=== PATIENT | female | born 1960 | race Caucasian/White ===

== ENCOUNTER → 2017-03-31 | Outpatient (CLI) | payer OTHER ==
[~2017-03-31] MED LIST: LISI20TA3 PO; LZL/125 PO
--- NOTE | 2017-04-01 08:26 | MAMMOGRAPHY REPORT ---
BILATERAL DIGITAL SCREENING MAMMOGRAM TOMOSYNTHESIS WITH CAD: 03/31/2017 CLINICAL HISTORY: Routine screening examination. TECHNIQUE: Breast tomosynthesis in addition to standard 2D mammography was performed. Current study was also evaluated with a Computer Aided Detection (CAD) system. COMPARISON: Comparison is made to exams dated: 03/26/2016 mammogram, 02/16/2015 mammogram, 08/21/2014 ultrasound, 08/21/2014 mammogram, 02/17/2014 ultrasound, and 02/17/2014 mammogram - [facility]. BREAST COMPOSITION: The tissue of both breasts is extremely dense, which lowers the sensitivity of mammography. FINDINGS: There are possible clustered microcalcifications in the upper outer posterior left breast , for which additional spot magnification views are recommended. Other benign-appearing round and punctate microcalcifications are diffusely scattered bilaterally. No other suspicious mass, architectural distortion or developing asymmetry is seen. IMPRESSION: ACR BI-RADS CATEGORY 0: INCOMPLETE EVALUATION: NEED ADDITIONAL IMAGING EVALUATION The possible clustered microcalcifications in the left upper outer breast needs additional evaluatio n. The patient will be called to schedule an appointment. Approximately 10% of breast cancers are not detected with mammography. A negative mammographic repor t should not delay biopsy if a clinically suggestive mass is present. Kary Valencia M.D. ay/:03/31/2017 17:16:32 Acoustical Engineer: Jhoana DELVALLE(Finesse)(M), [facility] letter sent: Addl Imaging 0 BI-RADS Code: ACR BI-RADS Category 0: Incomplete Evaluation: Need Additional Imaging Evaluation
== END | disposition home or self-care (01) ==
LOC: C.MAMM 08:23
PROVIDERS: ATTEND Obstetrics & Gynecology
DX: Z12.31 Encounter for screening mammogram for malignant neoplasm of breast (principal); R92.2 Inconclusive mammogram

== ENCOUNTER → 2017-04-08 | Outpatient (CLI) | payer OTHER ==
--- NOTE | 2017-04-08 13:17 | MAMMOGRAPHY REPORT ---
UNILATERAL LEFT DIGITAL DIAGNOSTIC MAMMOGRAM: 04/08/2017 CLINICAL HISTORY: Call back from screening mammography for possible clustered microcalcifications in the superior left breast. No strong family history of breast cancer. TECHNIQUE: Spot magnification left CC and ML views were obtained. COMPARISON: Comparison is made to exams dated: 03/31/2017 mammogram, 03/26/2016 mammogram, 02/16/2015 m ammogram, 02/14/2014 mammogram, 02/07/2013 mammogram, and 12/11/2011 mammogram - [facility]. BREAST COMPOSITION: The tissue of the left breast is heterogeneously dense, which may obscure small masses. FINDINGS: Spot magnification views of the left breast demonstrate numerous scattered rounded and rim calcifications, and numerous groupings and clusters of punctate microcalcifications throughout the superior left breast. None demonstrate definite layering on the spot magnification ML view to confi rm benign milk of calcium. When comparing back to prior available mammograms, microcalcifications w ere present throughout the superior left breast dating back to at least 2008, although some of the f aint punctate clusters are better visualized on the current spot magnification views, which could be secondary to technique and different equipment. No obvious mass or focal area of architectural dis tortion is identified in the superior left breast. There are also punctate and round microcalcifica tions throughout the right breast. Overall, these findings most likely represent benign fibrocystic changes. Given the increased conspicuity of small faint groupings and clusters of microcalcificati ons in the superior left breast, a short interval follow-up diagnostic mammogram including spot magn ification views is recommended to ensure stability in 6 months. IMPRESSION: ACR-BI-RADS CATEGORY 3: PROBABLY BENIGN A six-month follow-up left diagnostic mammogram including spot magnification views is recommended to ensure stability of grouped, clustered and scattered round and punctate microcalcifications in the superior breast, some of which are increasingly conspicuous compared to prior exams. These results and recommendations were discussed with the patient at the time of the exam. She tent atively scheduled a follow-up appointment prior to leaving our department. Approximately 10% of breast cancers are not detected with mammography. A negative mammographic repor t should not delay biopsy if a clinically suggestive mass is present. Kary Valencia M.D. ay/:04/08/2017 09:11:17 Certified Optician: Jordan DELVALLE(R)(M), [facility] letter sent: Follow Up Recommended 3 BI-RADS Code: ACR-BI-RADS Category 3: Probably Benign
== END | disposition home or self-care (01) ==
LOC: C.MAMM 08:19
PROVIDERS: ATTEND Obstetrics & Gynecology
DX: R92.0 Mammographic microcalcification found on diagnostic imaging of breast (principal)

== ENCOUNTER → 2017-09-04 | Outpatient (CLI) | payer OTHER ==
[2017-09-04 09:47] LABS: BASO % 1.9 %; BASO ABS # 0.11 K/uL (0-0.2); COMPLETE YES; EOS % 1.9 %; HEMATOCRIT 40.6 % (37-47); IG% 0.2 %; LYMPH % 43.4 %; LYMPH ABS # 2.52 K/uL (1.2-3.4); MEAN CELL VOLUME 86.9 fL (80-100); MEAN CORPUSCULAR HEMOGLOBIN 29.8 pg (25-34); MEAN CORPUSCULAR HGB CONC 34.2 g/dl (32-36); MONO % 7.9 %; NEUT % 44.7 %; PLATELET COUNT 301 K/uL (130-400); RED BLOOD COUNT 4.67 M/uL (4.2-5.4)
[2017-09-04 09:57] LABS: ALT/SGPT 25 U/L (12-78); AST/SGOT 17 U/L (15-37); BLOOD UREA NITROGEN 16 mg/dl (7-18); BUN/CREATININE RATIO 18.2 (10-20); CALCIUM 9.4 mg/dl (8.5-10.1); CARBON DIOXIDE 29 mmol/L (21-32); CHLORIDE 106 mmol/L (98-107); CHOLESTEROL 204 mg/dl (0-200); CREATININE 0.88 mg/dl (0.60-1.20); GLUCOSE 101 mg/dl (70-99); POTASSIUM 3.8 mmol/L (3.5-5.1); SODIUM 140 mmol/L (136-145); TRIGLYCERIDES 84 mg/dl (0-150); VERY LOW DENSITY LIPOPROT CALC 17 mg/dl
[2017-09-04 10:05] LABS: URINE APPEARANCE CLEAR (CLEAR); URINE BILIRUBIN NEG (NEG); URINE COLOR YELLOW; URINE EPITHELIAL CELL AUTO >30 /lpf (0-5); URINE NITRITE NEG (NEG); URINE PH 6.5 (4.5-7.5); UROBILINOGEN NEG (NEG)
[2017-09-04 10:06] LABS: MANUAL MICROSCOPIC REQUIRED? NO; REVIEW REQ? NO
[2017-09-04 10:07] LABS: CHOLESTEROL/HDL RATIO 3.8; HDL CHOLESTEROL 53 mg/dl; LDL CHOLESTEROL CALCULATED 134 mg/dl
== END | disposition home or self-care (01) ==
LOC: C.LAB1850 07:13
PROVIDERS: ATTEND Internal Medicine
DX: E78.00 Pure hypercholesterolemia, unspecified (principal)

== ENCOUNTER → 2017-10-19 | Outpatient (CLI) | payer OTHER ==
--- NOTE | 2017-10-19 14:47 | MAMMOGRAPHY REPORT ---
UNILATERAL LEFT DIGITAL DIAGNOSTIC MAMMOGRAM TOMOSYNTHESIS WITH CAD: 10/19/2017 CLINICAL HISTORY: 57-year-old woman presents for follow-up in the left breast for possible clustered microcalcifications in the upper outer quadrant. TECHNIQUE: Left CC and MLO 2-D and tomosynthesis images, spot magnification left CC and ML views wer e obtained. Current study was also evaluated with a Computer Aided Detection (CAD) system. COMPARISON: Comparison is made to exams dated: 03/31/2017 mammogram, 04/08/2017 mammogram, 03/26/2016 ma mmogram, 02/16/2015 mammogram, 08/21/2014 ultrasound, and 02/17/2014 ultrasound - [facility]. BREAST COMPOSITION: The tissue of the left breast is heterogeneously dense, which may obscure small masses. FINDINGS: The glandular pattern of the left breast is similar to prior mammograms. No obvious new m ass, asymmetry or area of architectural distortion is identified. There are diffuse round and puncta te microcalcifications throughout the left breast. When assessing the spot magnification views, ther e is a small grouping of amorphous microcalcifications in the lateral, middle to posterior breast michael suring 2 mm, that is increasingly conspicuous comparing to the prior spot magnification views obtaine d on 04/08/2017. There is a possible second very faint grouping of amorphous microcalcifications pos terior to the first. These are thought to project just above the posterior nipple line on the spot m agnification MLO view. Given the increased conspicuity to prior spot magnification views these micro calcifications are indeterminate and definitive characterization with tissue sampling via a stereotac tic guided biopsy is recommended. IMPRESSION: ACR BI-RADS CATEGORY 4: SUSPICIOUS 1. There are possibly 2 very faint groupings of amorphous microcalcifications in the upper outer mid dle to posterior left breast, that are increasingly conspicuous comparing to prior spot magnification views obtained on 04/08/2017, as well as prior full-field mammograms. Definitive characterization w ith a stereotactic guided biopsy of the more conspicuous cluster (annotation #1) in the lateral, midd le one third of the left breast is recommended. Pending pathology results, would continue to follow the other possible cluster in 6 months. These results and recommendations were discussed with the patient at the time of the exam. She tenta tively scheduled the left breast stereotactic biopsy prior to leaving our department. Approximately 10% of breast cancers are not detected with mammography. A negative mammographic report should not delay biopsy if a clinically suggestive mass is present. Kary Valencia M.D. ay/:10/19/2017 10:51:36 Racking Technician: Jhoana DELVALLE(Finesse)(M), [facility] letter sent: Abnormal 4/5 BI-RADS Code: ACR BI-RADS Category 4: Suspicious
== END | disposition home or self-care (01) ==
LOC: C.MAMM 08:18
PROVIDERS: ATTEND Obstetrics & Gynecology
DX: R92.0 Mammographic microcalcification found on diagnostic imaging of breast (principal)

== ENCOUNTER → 2017-10-29 | Outpatient (CLI) | payer OTHER ==
--- NOTE | 2017-10-29 09:20 | Discharge Instructions ---
Discharge Instructions Procedure Procedure Date: Oct 29, 2017. Reason for visit: Left Calcs. Discharge Discharge Date: Oct 29, 2017. Discharge Diagnosis: status post breast biopsy Instructions Activity Recommendations: Additional Limitations (see below) Return to School/Work: no limitations Recommended Home Diet: No Limitations Provider Instructions: ACTIVITY RECOMMENDATIONS: * No lifting, pushing, pulling or exercising the affected side for three days. RETURN TO SCHOOL/WORK: * You may return to work/school after the procedure, but do not perform any strenuous activities for 24 to 48 hours. MEDICATIONS: * Tylenol (two 325 mg) every four to six hours if needed for mild pain (if not allergic to Tylenol). DIET: * Resume previous diet. SPECIAL CARE INSTRUCTIONS: * Keep biopsy site dry for 24 hours. May shower after 24 hours, but do not soak (bathe) incision. * May remove Tegaderm (plastic patch) tomorrow AFTER showering. * Leave the steri-strips on for one week. Allow the steri-strips to fall off by themselves. If not off after one week, you may remove them. You may place a Bandaid crosswise over the strips, if desired. * Apply ice 10 minutes on and 10 minutes off as needed. * Wear a bra at bedtime to sleep more comfortably for 2-3 days. * Your referring physician should have the results after approximately 5 to 7 business days. * Call for unusual bleeding, fever, drainage, etc or if you have any questions call during normal business hours or after hours call Dr Bone, . FOLLOW UP VISIT: Follow-up with Referring Physician as scheduled. Allergies Coded Allergies: No Known Allergies (Unverified , 02/27/12) Bry Coello Recommendations: Call your doctor if: * Temperature above 101 degrees * Pain not relieved by pain medicine ordered * There is increased drainage or redness from any incision * You have any unanswered questions or concerns. Your Doctors Instructions noted above were prepared by provider Yojana Bone. Patient Signature Section: Patient Instructions Signature Page Brittany Tyler Patient (or Guardian) Signature/Date: I have read and understand the instructions given to me by my caregivers. Caregiver/RN/Doctor Signature/Date: The above-named patient and/or guardian has received patient instructions on this date. + Original Patient Signature Page (only) stays with chart. Please make copy for patient.
--- NOTE | 2017-10-29 14:35 | MAMMOGRAPHY REPORT ---
UNILATERAL LEFT DIGITAL DIAGNOSTIC MAMMOGRAM: 10/29/2017 CLINICAL HISTORY: Status post left breast stereotactic biopsy. TECHNIQUE: Postprocedural left CC and LM views were obtained. COMPARISON: Comparison is made to exams dated: 10/19/2017 mammogram, 04/08/2017 mammogram, 03/31/2017 m ammogram, 03/26/2016 mammogram, 02/16/2015 mammogram, and 08/21/2014 ultrasound - [facility]. BREAST COMPOSITION: The tissue of the left breast is heterogeneously dense, which may obscure small masses. FINDINGS: A new biopsy marker clip is seen at the site of the biopsied calcifications in the left up per outer quadrant. No significant postbiopsy hematoma is seen. IMPRESSION: POST PROCEDURE IMAGING FOR MARKER PLACEMENT New biopsy marker clip status post left breast stereotactic biopsy. Pending benign pathology results, recommend follow-up diagnostic tomosynthesis mammograms of the left breast in [address] ability of the other similar appearing cluster in the left upper outer quadrant. Approximately 10% of breast cancers are not detected with mammography. A negative mammographic report should not delay biopsy if a clinically suggestive mass is present. Yojana Bone M.D. /:10/29/2017 09:34:27 Attending Technologist: Natacha Whitfield RT(R)(M), [facility] Supervisor Fireworks Assembly: Jordan Burks RT(R)(M), [facility] BI-RADS Code: Post Procedure Imaging For Marker Placement
--- NOTE | 2017-10-29 14:35 | MAMMOGRAPHY REPORT ---
STEREOTACTIC GUIDED BIOPSY LEFT BREAST: 10/29/2017 CLINICAL HISTORY: Indeterminate calcifications in the left upper outer quadrant. PATIENT CONSENT: The procedure, risks, benefits, and alternatives of stereotactic biopsy with clip pl acement were discussed with the patient, and verbal and written consent was obtained. A timeout was performed immediately prior to the procedure. PROCEDURE DESCRIPTION: With stereotactic guidance, aseptic technique, and lidocaine as a local anesth etic (1% lidocaine to anesthetize the skin and 1% lidocaine with epinephrine to anesthetize the deepe r tissues), the clustered calcifications of concern in the left upper outer quadrant were sampled mul tiple times with a 9-gauge vacuum-assisted biopsy needle ([employer]). The path of approach was aircraft systems repairer niocaudal. The specimen radiograph demonstrates calcifications to be present in the samples. A meta llic marker clip was placed at the biopsy site. This was confirmed on postprocedure mammograms. Dir ect pressure was applied at the biopsy site and hemostasis was readily achieved. The patient tolerat ed the procedure without complication. She was given wound care instructions. COMPARISON: Comparison is made to exams dated: 10/19/2017 mammogram, 04/08/2017 mammogram, 03/31/2017 m ammogram, 03/26/2016 mammogram, 02/16/2015 mammogram, and 02/14/2014 mammogram - [facility]. IMPRESSION: STEREOTACTIC GUIDED BIOPSY Stereotactic biopsy of indeterminate calcifications in the left upper outer quadrant, with clip place ment. The patient will receive pathology results from her referring provider. Pending benign pathol ogy results, recommend follow-up diagnostic tomosynthesis mammograms of the left breast in 6 months t o confirm stability of the other similar appearing cluster more posteriorly in the left upper outer q uadrant. Yojana Bone M.D. ah/:10/29/2017 09:26:32 Attending Technologist: Natacha Whitfield RT(R)(M), [facility] Shelter Director: Jordan Burks RT(R)(M), [facility]
== END | disposition home or self-care (01) ==
LOC: C.MAMM 08:40
PROVIDERS: ATTEND Obstetrics & Gynecology
DX: R92.0 Mammographic microcalcification found on diagnostic imaging of breast (principal)

== ENCOUNTER → 2018-04-21 | Outpatient (CLI) | payer OTHER ==
--- NOTE | 2018-04-21 14:23 | MAMMOGRAPHY REPORT ---
BILATERAL DIGITAL DIAGNOSTIC MAMMOGRAM TOMOSYNTHESIS WITH CAD: 04/21/2018 CLINICAL HISTORY: 57-year-old woman presents at time of annual bilateral screening mammography. She is 6 months status post left breast stereotactic biopsy in the upper outer quadrant which yielded altagracia ign pathology results including adenosis. She presents for close follow-up of a second conspicuous n on-biopsied cluster of calcifications also in the left upper outer posterior breast. TECHNIQUE: Bilateral breast tomosynthesis in addition to standard 2D mammography was performed. Spot magnification left CC and ML views were also obtained. Current study was also evaluated with a Comp uter Aided Detection (CAD) system. COMPARISON: Comparison is made to exams dated: 10/29/2017 mammogram, 10/29/2017 stereotactic biopsy, 10/19/2017 mammogram, 04/08/2017 mammogram, 03/31/2017 mammogram, and 03/26/2016 mammogram - [facility]. BREAST COMPOSITION: The tissue of both breasts is heterogeneously dense, which may obscure small mas ses. FINDINGS: The glandular pattern is similar to prior mammograms. There are no new suspicious masses, asymmetries, areas of architectural distortion or new calcifications. There are diffuse punctate keith rocalcifications in both breasts. The spot magnification views of the left breast redemonstrate a sm all, 3 mm grouping of faint punctate microcalcifications best identified on the spot magnification ML view posterior to the dumbbell-shaped biopsy marker clip. This is less conspicuous on the current C C view but given the stability on the spot magnification ML view dating back to at least 04/08/2017 th shameka calcifications are also most likely benign. Another 12 month follow-up diagnostic mammogram incl uding spot magnification views is recommended to ensure at least 2 years of stability to confirm pieter gnity. IMPRESSION: ACR-BI-RADS CATEGORY 3: PROBABLY BENIGN 1. Stable mammographic appearance of the right breast, without evidence of malignancy. 2. Stable mammographic appearance of the left breast including postbiopsy changes in the upper outer quadrant, and a stable non-biopsied 3 mm grouping of punctate microcalcifications also in the upper outer posterior left breast. Another 12 month follow-up diagnostic mammogram including left spot mag nification views is recommended to ensure longer stability. Annual right mammography will also be du e at that time. These results and recommendation were discussed with the patient at the time of the exam. Approximately 10% of breast cancers are not detected with mammography. A negative mammographic report should not delay biopsy if a clinically suggestive mass is present. Kary Valencia M.D. ay/:04/21/2018 09:08:18 Superintendent Institution: Jhoana DELVALLE(Finesse)(Renetta), [facility] letter sent: Follow Up Recommended 3 BI-RADS Code: ACR-BI-RADS Category 3: Probably Benign
== END | disposition home or self-care (01) ==
LOC: C.MAMM 07:54
PROVIDERS: ATTEND Obstetrics & Gynecology
DX: R92.0 Mammographic microcalcification found on diagnostic imaging of breast (principal)